=== PATIENT | female | born 2000 | race African-American/Black ===

== ENCOUNTER 2018-12-08 17:13 | Inpatient (IN) | payer OTHER, SELFPAY ==
[~2018-12-08 17:13] MED LIST: ISOVUE-370 76%-LOCM 1 ML ONE
[2018-12-08] MEDS ORDERED: Ketorolac Tromethamine 30 MG/ML VIAL ONE (17:50)
[2018-12-08 17:59] LABS: #Basophils 0.1 thou/uL (0.0-0.2); #Eosinphils 0.3 thou/uL (0.0-0.7); #Lymphocytes 2.6 thou/uL (1.20-3.40); #Monocytes 1.3 thou/uL (0.11-0.59); %Basophils 0.5 % (0.0-1.0); %Eosinophils 1.4 % (0.0-10.0); %Lymphocytes 14.3 % (28.0-48.0); %Monocytes 7.3 % (0.0-4.0); %Neutrophils 76.5 % (31.0-61.0); Hemoglobin 12.3 g/dL (12.0-16.0); Mean Corpuscular HGB CONC 32.9 g/dL (32.0-36.0); Mean Corpuscular Hemoglobin 30.3 pg (25.0-35.0); Mean Platelet Volume 7.7 fL (7.4-10.4); Platelet Count 237 thou/uL (130-400); RBC Distribution Width 12.3 % (11.5-14.5); Red Blood Cell (RBC) Count 4.05 mill/uL (4.00-5.20); White Blood Cell (WBC) Count 18.3 thou/uL (4.8-10.8)
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
[2018-12-08 18:10] LABS: BHCG - Serum Negative (NEGATIVE); Pregs Control Background? CLEAR/WHITE (CLR/WHITE); Pregs Control Bar Appear? YES (CONTROL BAR)
[2018-12-08 18:15] LABS: AST (SGOT) 67 U/L (5-34); Bilirubin, Total 0.3 mg/dL (0.2-1.2); Chloride 111 mmol/L (98-107); Magnesium 1.9 mg/dL (1.7-2.2); Potassium 3.4 mmol/L (3.5-5.1); Sodium 139 mmol/L (136-145)
[2018-12-08 18:26] LABS: ALT (SGPT) 46 U/L (8-55); Alkaline Phosphatase 40 U/L (40-150); Anion Gap 16 mmol/L (10-20); BUN (Urea Nitrogen) 4 mg/dL (7.0-18.7); Calc. Creatinine Clearance 0 mL/min (70-130); Carbon Dioxide 15 mmol/L (22-29); Estimated GFR-MDRD Greater than 90; Globulin 2.7 g/dL (2.4-3.5); Glucose 108 mg/dL (70-105); Protein, Total 6.7 g/dL (6.0-8.3)
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
[2018-12-08] MEDS ORDERED: Morphine 4 MG/ML VIAL ONE (19:20)
[2018-12-08] MEDS ORDERED: Piperacillin/Tazobactam 3.375 GM VIAL ONE (19:27)
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
[2018-12-08] MEDS ORDERED: Dextrose 50% Abboject 50 ML SYRINGE SLOW IVP PRN (20:06)
[2018-12-08] MEDS ORDERED: Dextrose 5% in Water 1,000 ML IV PRN (20:06)
[2018-12-08] MEDS ORDERED: Promethazine HCl 25 MG/ML VIAL IM PRN ×2 (20:06→21:55)
[2018-12-08] MEDS ORDERED: hydrALAZINE 20 MG/ML VIAL SLOW IVP PRN (20:06)
[2018-12-08] MEDS ORDERED: Morphine 4 MG/ML VIAL SLOW IVP PRN ×2 (20:06→20:13)
[2018-12-08] MEDS ORDERED: Morphine 2 MG/ML SYRINGE SLOW IVP PRN (20:13)
[2018-12-08] MEDS ORDERED: Fentanyl 100 MCG/2 ML VIAL ONE ×3 (20:27→22:36)
[2018-12-08] MEDS ORDERED: Lidocaine 2% Jelly 5 ML TUBE ONE (20:27)
[2018-12-08 20:30] LABS: Lactic Acid 4.2 mmol/L (0.5-2.2)
[2018-12-08 20:32] LABS: Bilirubin Negative (Negative); Blood, Urine Small (Negative); Glucose, Urine (Dipstick) Negative (Negative); Leukocyte Negative (Negative); Nitrite Negative (Negative); Protein, Urine (Dipstick) Negative (Neg-Trace); Urobilinogen 0.2 mg/dL (0.2-1.0)
[2018-12-08 20:34] LABS: Clarity Clear (Clear)
[2018-12-08 20:37] LABS: Bacteria/HPF None Seen HPF (None Seen); Squamous Epithelial 0-3 HPF (0-3); WBC/HPF 0-3 HPF (0-3)
[2018-12-08 20:42] LABS: Hyaline Casts/LPF NONE SEEN LPF (0-3 Hyaline)
[2018-12-08] MEDS ORDERED: Ketorolac Tromethamine 60 MG/2 ML VIAL IVP PRN (21:52)
[2018-12-08] MEDS ORDERED: Ibuprofen 600 MG TAB PO PRN (21:53)
[2018-12-08] MEDS ORDERED: traMADol HCl 50 MG TAB PO PRN ×2 (21:53)
[2018-12-08] MEDS ORDERED: Acetaminophen 500 MG TAB PO PRN (21:53)
[2018-12-08] MEDS ORDERED: Ondansetron ODT 4 MG TAB PO PRN (21:55)
[2018-12-08] MEDS ORDERED: Ondansetron HCl/PF 4 MG/2 ML Vial IVP PRN (21:55)
[2018-12-08] MEDS ORDERED: Ondansetron ODT 8 MG TAB PO PRN (21:55)
[2018-12-08] MEDS ORDERED: Promethazine HCl 25 MG/ML VIAL SLOW IVP PRN (21:55)
[2018-12-08] MEDS ORDERED: Potassium Chloride 20 MEQ/100 ML PREMIX BAG IVPB SCH (22:00)
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
[2018-12-08 23:23] VITALS: BMI 23.1
[2018-12-08] MEDS: Acetaminophen 1,000 MG in Premix Bag 1 BAG IVPB SCH (23:45)
[2018-12-08] MEDS: Sodium Chloride 0.9% 1,000 ML IV SCH (23:45)
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
[2018-12-09] MEDS: Ondansetron PF 4 MG/2 ML Vial IVP PRN ×3 (03:21→19:20)
[2018-12-09 04:53] LABS: #Lymphocytes 0.6 thou/uL (1.20-3.40); #Monocytes 1.1 thou/uL (0.11-0.59); #Neutrophils 11.5 thou/uL (1.40-6.50); %Basophils 0.1 % (0.0-1.0); %Eosinophils 0.1 % (0.0-10.0); %Lymphocytes 4.2 % (28.0-48.0); %Monocytes 8.3 % (0.0-4.0); %Neutrophils 87.2 % (31.0-61.0); Hemoglobin 11.2 g/dL (12.0-16.0); Mean Corpuscular HGB CONC 33.6 g/dL (32.0-36.0); Mean Corpuscular Hemoglobin 31.2 pg (25.0-35.0); Mean Corpuscular Volume 93.1 fL (78.0-98.0); Platelet Count 194 thou/uL (130-400); RBC Distribution Width 12.4 % (11.5-14.5); Red Blood Cell (RBC) Count 3.59 mill/uL (4.00-5.20); White Blood Cell (WBC) Count 13.2 thou/uL (4.8-10.8)
[2018-12-09 05:08] LABS: Anion Gap 11 mmol/L (10-20); BUN (Urea Nitrogen) 5 mg/dL (7.0-18.7); Calc. Creatinine Clearance 103 mL/min (70-130); Calcium 8.7 mg/dL (7.8-10.44); Carbon Dioxide 21 mmol/L (22-29); Chloride 108 mmol/L (98-107); Estimated GFR-MDRD Greater than 90; Glucose 165 mg/dL (70-105); Magnesium 1.4 mg/dL (1.7-2.2); Phosphorus 3.5 mg/dL (2.3-4.7); Potassium 4.4 mmol/L (3.5-5.1); Sodium 136 mmol/L (136-145)
[2018-12-09 05:23] LABS: Lactic Acid 2.7 mmol/L (0.5-2.2)
[2018-12-09] MEDS: Acetaminophen 1,000 MG in Premix Bag 1 BAG IVPB SCH (05:50)
[2018-12-09] MEDS: Sodium Chloride 0.9% 1,000 ML IV SCH ×2 (05:58→16:14)
[2018-12-09] MEDS ORDERED: Magnesium Sulfate 2 GM in Sodium Chloride 0.9% 100 ML IVPB SCH (08:45)
[2018-12-09] MEDS ORDERED: Magnesium 2 GM/50 ML 2 GM in Premix Bag 1 BAG IVPB SCH (11:00)
[2018-12-09] MEDS: Acetaminophen 500 MG TAB PO SCH ×2 (11:46→18:36)
--- NOTE | 2018-12-09 14:02 | PRG ---
DATE OF SERVICE: 12/09/2018 SUBJECTIVE: Kimberly Parada is doing well after repair of serosal tear in sigmoid and transverse colon. OBJECTIVE: VITAL SIGNS: 98.1 degrees, 93, 95/60. LUNGS: Clear to auscultation. CARDIAC: Regular rate and rhythm without murmur or gallop. ABDOMEN: Soft. Bowel sounds present, although diminished. EXTREMITIES: Unremarkable. Midline wound in abdomen well-healed with absorbable sutures and Dermabond. LABORATORY DATA: White count 13, this morning, hemoglobin 11. Basic metabolic profile is normal. ASSESSMENT AND PLAN: Some nausea postoperatively. N.p.o. until nausea resolves, then the patient of her own accord will advance her diet as tolerated. She has been ambulating. She has good pain control. Job ID: [id number]
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
[2018-12-09] MEDS ORDERED: Ondansetron PF 4 MG/2 ML Vial SLOW IVP SCH (21:30)
[2018-12-10] MEDS: Acetaminophen 500 MG TAB PO SCH ×4 (00:08→18:37)
[2018-12-10] MEDS: Sodium Chloride 0.9% 1,000 ML IV SCH ×2 (02:28→12:31)
[2018-12-10] MEDS: Ondansetron PF 4 MG/2 ML Vial IVP PRN ×2 (05:50→12:28)
[2018-12-10 06:49] LABS: #Lymphocytes 1.7 thou/uL (1.20-3.40); #Monocytes 0.8 thou/uL (0.11-0.59); #Neutrophils 8.2 thou/uL (1.40-6.50); %Basophils 0.3 % (0.0-1.0); %Eosinophils 0.4 % (0.0-10.0); %Lymphocytes 15.8 % (28.0-48.0); %Monocytes 7.5 % (0.0-4.0); Hemoglobin 9.1 g/dL (12.0-16.0); Mean Corpuscular HGB CONC 33.7 g/dL (32.0-36.0); Mean Corpuscular Hemoglobin 31.5 pg (25.0-35.0); Mean Corpuscular Volume 93.5 fL (78.0-98.0); Mean Platelet Volume 8.1 fL (7.4-10.4); Platelet Count 157 thou/uL (130-400); RBC Distribution Width 12.4 % (11.5-14.5); Red Blood Cell (RBC) Count 2.89 mill/uL (4.00-5.20); White Blood Cell (WBC) Count 10.8 thou/uL (4.8-10.8)
[2018-12-10 07:11] LABS: Anion Gap 9 mmol/L (10-20); BUN (Urea Nitrogen) 6 mg/dL (7.0-18.7); Calc. Creatinine Clearance 120 mL/min (70-130); Calcium 7.9 mg/dL (7.8-10.44); Carbon Dioxide 22 mmol/L (22-29); Chloride 110 mmol/L (98-107); Estimated GFR-MDRD Greater than 90; Glucose 83 mg/dL (70-105); Potassium 3.7 mmol/L (3.5-5.1); Sodium 137 mmol/L (136-145)
[2018-12-10 12:41] LABS: Magnesium 1.7 mg/dL (1.7-2.2); Phosphorus 2.6 mg/dL (2.3-4.7)
[2018-12-10] MEDS ORDERED: Magnesium Sulfate 4 GM in Sodium Chloride 0.9% 250 ML 250 ML IVPB SCH (14:15)
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
[2018-12-11] MEDS: Acetaminophen 500 MG TAB PO SCH ×3 (00:42→11:39)
[2018-12-11] MEDS: Sodium Chloride 0.9% 1,000 ML IV SCH ×3 (00:44→11:44)
[2018-12-11 13:47] VITALS: BP 118/75; TEMP 98.8
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
== END 2018-12-11 13:45 | disposition home or self-care (01) | DRG 959 ==
LOC: ERS 17:13 → SDC/OP 20:44 → SJJU 22:40
PROVIDERS: ADMIT Specialist; ATTEND Specialist
PROC: 0DQN0ZZ Repair Sigmoid Colon, Open Approach (ICD-10-PCS; principal; 2018-12-08)
PROC: 0DQL0ZZ Repair Transverse Colon, Open Approach (ICD-10-PCS; 2018-12-08)
PROC: 0W9F0ZZ Drainage of Abdominal Wall, Open Approach (ICD-10-PCS; 2018-12-08)
DX: S36.533A Laceration of sigmoid colon, initial encounter (principal); S32.19XA Other fracture of sacrum, initial encounter for closed fracture; S36.531A Laceration of transverse colon, initial encounter; J45.909 Unspecified asthma, uncomplicated; V43.62XA Car passenger injured in collision with other type car in traffic accident, initial encounter; Y92.410 Unspecified street and highway as the place of occurrence of the external cause; R11.0 Nausea
CPT/HCPCS: 36415; 70450; 71045; 72125; 72170; 74177; 80048; 80053; 81003; 81015; 83605; 83735; 84100; 84703; 85025; G0390; J0131; J1885; J2270; J2405; J2543; J3010; J3475; J3480; J3490; J7050